=== PATIENT | female | born 1955 | race Hispanic/Latino ===

== ENCOUNTER 2016-11-02 14:06 | Outpatient (CLI) | payer BC, OTHER | END 2016-11-02 14:07 | disposition home or self-care (01) | LOC: LABHHL 14:06 | PROVIDERS: ATTEND Specialist | DX: N60.32 Fibrosclerosis of left breast (principal); R92.0 Mammographic microcalcification found on diagnostic imaging of breast; N63 Unspecified lump in breast; I10 Essential (primary) hypertension; I48.91 Unspecified atrial fibrillation | CPT/HCPCS: 88305 ==

== ENCOUNTER 2017-03-29 08:51 | Outpatient (CLI) | payer BC ==
--- NOTE | 2017-03-30 14:20 | Ultrasound Report ---
LEFT BREAST ULTRASOUND: 03/29/17 08:51:00 CLINICAL: Followup after benign biopsy. Status post ultrasound needle biopsy at 12:30 o'clock 4 cm from the nipple on 11/02/16. Pathology report describes benign breast tissue with dense fibrosis and microcalcifications. COMPARISON: 11/02/16 and 10/26/16 ultrasound and 03/21/17 mammogram. The current mammogram demonstrates no suspicious finding. FINDINGS: Ultrasound of the left breast demonstrated an irregular hypoechoic mass at the biopsy site at 12:30 o'clock 4 cm from the nipple. It measures 9 x 7 mm and demonstrates shadowing. IMPRESSION: Probably benign post biopsy changes by ultrasound with a stable mammogram. The hypoechoic mass is compatible with a post biopsy hematoma/seroma. Recommend six month followup mammogram and ultrasound. BI-RADS 3 - - Probably Benign
== END 2017-03-29 08:52 | disposition home or self-care (01) ==
LOC: SPVWC 08:51
PROVIDERS: ATTEND Surgery
DX: R92.8 Other abnormal and inconclusive findings on diagnostic imaging of breast (principal)

== ENCOUNTER 2017-08-05 08:50 | Outpatient (CLI) | payer BC ==
--- NOTE | 2017-08-05 10:40 | Mammography Report ---
LEFT DIGITAL DIAGNOSTIC MAMMOGRAM: 08/05/17 08:50:00 CLINICAL: For clip placement immediately status post ultrasound biopsy. COMPARISON:07/11/17 FINDINGS: A new biopsy clip is now identified at 12:30 o'clock approximately 4 cm from the nipple. Two previous biopsy clips remain in the vicinity of the biopsy site. No mass is identified. IMPRESSION: Concordant clip placement status post ultrasound biopsy. BI-RADS CATEGORY: 4--Suspicious Pathology pending.
--- NOTE | 2017-08-05 11:03 | Ultrasound Report ---
VACUUM ASSISTED ULTRASOUND GUIDED NEEDLE CORE BIOPSY WITH CLIP PLACEMENT LEFT BREAST: 08/05/17 08:50:00 CLINICAL: An enlarging suspicious mass at 12:30 o'clock 4 cm from the nipple. The lesion was biopsied on 11/02/16 with pathology result of benign breast tissue with dense fibrosis. COMPARISON :07/11/17 mammogram and left breast ultrasound and 03/29/17 and 11/02/16 left breast ultrasound. FINDINGS: The procedure was explained to the patient and informed consent was obtained. Ultrasound demonstrated the shadowing mass with the biopsy clip at 12:30 o'clock 4 cm from the nipple. The skin was prepped with Betadine and anesthetized with 1% lidocaine. Vacuum-assisted needle core biopsy was performed through a small dermatotomy using ultrasound guidance, 2% lidocaine with epinephrine for deep anesthesia and a 10-gauge Mammotome Elite biopsy probe. Multiple cores were obtained and placed in formalin. Complete or near complete removal of the lesion by ultrasound. A hydro-lamar clip was deployed at the site. Hemostasis was achieved with minimal pressure and a sterile dressing was applied. The patient tolerated the procedure well and there were no apparent complications. A two view mammogram demonstrated concordant clip placement. Two additional biopsy clips remain at the site of the lesion. The patient left the department in good condition with instructions for wound care and follow up. IMPRESSION: Uncomplicated vacuum-assisted ultrasound core biopsy and clip placement left breast.
== END 2017-08-05 08:51 | disposition home or self-care (01) ==
LOC: SPVWC 08:50
PROVIDERS: ATTEND Surgery
DX: N60.32 Fibrosclerosis of left breast (principal); R92.0 Mammographic microcalcification found on diagnostic imaging of breast
CPT/HCPCS: 88305

== ENCOUNTER 2020-08-21 09:03 | Outpatient (CLI) | payer BC ==
--- NOTE | 2020-08-21 10:39 | Mammography Report ---
DIGITAL SCREENING MAMMOGRAM WITH CAD, 08/21/2020 CLINICAL INFORMATION / INDICATION: Routine screening mammography. SCREENING MAMMO TECHNIQUE: Digital bilateral 2D mammography was obtained in the craniocaudal and mediolateral obliqu e projections. This examination was interpreted with the benefit of Computer-Aided Detection analysis . COMPARISON: 07/12/2018, 08/21/2019 FINDINGS: Breast Density: The breasts are heterogeneously dense, which may obscure small masses. No dominant mass, suspicious calcifications, or architectural distortion in either breast. There are biopsy marking clips in the left. There are stable bilateral calcifications. IMPRESSION: No mammographic evidence of malignancy. Follow up recommendation: Routine yearly BI-RADS Category 2: Benign. A "normal" or negative report should not discourage follow up or biopsy of a clinically significant f inding. A written summary of these findings will be mailed to the patient. The patient will be entered into a mammography reporting system which will generate a reminder letter for the patient's next appointmen t at the appropriate interval. The [employer] recommends yearly mammograms starting at age 40 and continuing as l keon as a woman is in good health. Breast MRI is recommended for women with an approximate 20-25% or greater lifetime risk of breast cancer, including women with a strong family history of breast or ova gabriela cancer or who have been treated for Hodgkin's disease. Signer Name: Chris Levi MD Signed: 08/21/2020 10:35 AM Workstation Name: [id number]
== END 2020-08-21 09:04 | disposition home or self-care (01) ==
LOC: SPVWC 09:03
PROVIDERS: ATTEND Surgery
DX: Z12.31 Encounter for screening mammogram for malignant neoplasm of breast (principal); N64.89 Other specified disorders of breast
CPT/HCPCS: 77063; 77067